=== PATIENT | male | born 1990 | race Caucasian/White ===

== ENCOUNTER 2021-05-13 11:30 | Outpatient (REF) | payer SELFPAY ==
[2021-05-13 13:22] LABS: Binax Internal Control QC Valid; Binax Now Covid-19 Ag Positive (Negative)
[2021-05-13 13:23] LABS: Binax Lot number: 9864
== END 2021-05-13 11:31 | disposition home or self-care (01) ==
LOC: HO.LAB 11:30
PROVIDERS: Visit Provider Internal Medicine
DX: Z20.822 Contact with and (suspected) exposure to COVID-19 (principal)
CPT/HCPCS: C9803